=== PATIENT | female | born 1955 | race Caucasian/White ===

== ENCOUNTER 2018-11-18 08:11 | Emergency (ER) | payer SELFPAY ==
[~2018-11-18] VITALS: Ht 152.4 cm; Wt 112.0 kg
[2018-11-18 08:20] VITALS: BP 182/89
--- NOTE | 2018-11-18 08:38 | NUR ---
pt to room from lobby
--- NOTE | 2018-11-18 09:05 | NUR ---
63 Y/O FEMALE PRESENTS TO ED WITH C/O LOPEZ. PER PT "I'VE HAD A HEADACHE FOR ABOUT 2 MONTHS. I'VE NEVER SEEN A DR. FOR THESE HEADACHES. I TAKE CARVEDILOL FOR HTN, BUT THAT WAS FROM MY OLD DR. I TAKE THEM EVERY DAY." NO ACUTE DISTRESS NOTED. PT PLACED ON CONT PULSE OX,NIBP. NO C/O N/V/D, TRAUMA, SYNCOPE, CP, SOB. Addendum: 11/18/18 at 0921 by [email or web address] MEDICATION IS ATENOLOL, NOT CARVIDELOL
--- NOTE | 2018-11-18 09:09 | NUR ---
LATE ENTRY FOR 0900 THIS RN IN ROOM TO ASSESS PT. PT SITTING ON CHAIR PLAYING/LOOKING AT CELL PHONE. PT TO [facility] WITH STEADY GAIT.
--- NOTE | 2018-11-18 09:46 | NUR ---
PT SITTING ON CHAIR. PT PLAYING/LOOKING AT CELL PHONE. PT REFUSES TO KEEP BP CUFF ON PROPERLY. PT REFUSING TO SIT ON GURNEY TO MONITOR VITAL SIGNS PROPERLY.
[2018-11-18 09:47] LABS: BASOPHILS # (AUTO) 0.04 x10^3/uL (0-0.1); BASOPHILS % (AUTO) 1 % (0-1); EOSINOPHILS # (AUTO) 0.15 x10^3/uL (0-0.4); EOSINOPHILS % (AUTO) 2 % (1-7); LYMPHOCYTES # (AUTO) 2.68 x10^3/uL (1-3.4); LYMPHOCYTES % (AUTO) 36 % (22-44); MD NO; MEAN CORPUSCULAR HEMOGLOBIN 29.2 pg (27.0-34.8); MEAN CORPUSCULAR HGB CONC 32.8 g/dL (32.4-35.8); MEAN CORPUSCULAR VOLUME 89.1 fL (80-100); MEAN PLATELET VOLUME 9.7 fL (7.4-10.4); MONOCYTES # (AUTO) 0.63 x10^3/uL (0.2-0.8); MONOCYTES % (AUTO) 8 % (2-9); NEUTROPHILS # (AUTO) 3.95 x10^3/uL (1.8-6.8); NEUTROPHILS % (AUTO) 53 % (42-75); PLATELET COUNT 176 x10^3/uL (130-400); RED BLOOD COUNT 4.96 x10^6/uL (3.82-5.3); RED CELL DISTRIBUTION WIDTH 13.7 % (9.6-15.2)
--- NOTE | 2018-11-18 09:51 | NUR ---
PT REFUSING TO TAKE CLONIDINE.
--- NOTE | 2018-11-18 09:53 | NUR ---
PT ARGUMENTATIVE REGARDING MEDICATION. PT STATES "I'M NOT TAKING THAT MEDICATION.I TAKE ATENOLOL. I KNOW THE MEDICATION GAME. I'M NOT STUPID." THIS RN TRIED TO EDUCATE PT REGARDING MEDICATION AND HER MEDICATION. PT REFUSES TO LISTEN. PT STATES "IM NOT TAKING IT!"
[2018-11-18 09:57] LABS: ALBUMIN 3.8 g/dL (3.4-5.0); ANION GAP 5 mmol/L (5-15); CALCIUM 8.8 mg/dL (8.5-10.1); CHLORIDE 110 mmol/L (98-107); CREATININE 0.77 mg/dL (0.55-1.02)
--- NOTE | 2018-11-18 10:07 | NUR ---
SPECIFICATION MANAGER STATES TO RN THAT PT REFUSING CT AND IS LEAVING. THIS RN IN TO CHECK AND SPEAK WITH PT, PT OUT OF ROOM. ALL PT BELONGINGS GONE FROM ROOM.
== END 2018-11-18 10:09 | disposition left against medical advice (07) ==
LOC: ED 10:07
DX: I10 Essential (primary) hypertension (principal); R51 Headache; F17.200 Nicotine dependence, unspecified, uncomplicated
CPT/HCPCS: 36415; 80048; 82040; 85025; 99283